=== PATIENT | male | born 1975 | race Caucasian/White ===

== ENCOUNTER 2017-07-22 21:44 | Emergency (ER) | payer SELFPAY ==
[2017-07-22 21:50] VITALS: BP 126/74; PULSE 71; RESP 16; TEMP 98.2
--- NOTE | 2017-07-22 22:22 | ED ---
General Adult HPI - General Chief complaint: Drug Screen Stated complaint: Blood Draw Time Seen by Provider: 07/22/17 22:09 Source: patient, RN notes reviewed Mode of arrival: ambulatory Limitations: no limitations - History of Present Illness Initial comments: This is a 42-year-old male who presents to the emergency department for post accident drug screening. 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 The door of one of his work trucks came off the hinges and broke off. Patient states that because it was work property, he is required to have a drug screen. Denies any injuries or trauma to himself. Has no other complaints, requests or concerns. - Related Data Home Medications Medication Instructions Recorded Confirmed Diphenhydra/Phenyleph/Acetamin 5 ml PO BID PRN 07/22/17 07/22/17 [Theraflu Expressmax Cold Nt Lq] Allergies Allergy/AdvReac Type Severity Reaction Status Date / Time No Known Allergies Allergy Verified 07/22/17 21:58 Review of Systems ROS Statement: Those systems with pertinent positive or pertinent negative responses have been documented in the HPI. ROS Other: All systems not noted in ROS Statement are negative. Past Medical History Past Medical History: No Reported History History of Any Multi-Drug Resistant Organisms: None Reported Past Surgical History: No Surgical Hx Reported Past Psychological History: No Psychological Hx Reported Smoking Status: Heavy tobacco smoker Past Alcohol Use History: None Reported Past Drug Use History: None Reported General Exam - General Exam Comments Initial Comments: General: Awake and alert, well-developed; in no apparent distress. HEENT: Head atraumatic, normocephalic. Pupils are equal, round and reactive to light. Extraocular movements intact. Neck: Supple. Normal ROM. Neurological: Alert and oriented x3. CN II-XII grossly intact. Speech is fluent and answers are appropriate. No focal neuro deficits. Psychiatric: Normal mood and affect. No overt signs of depression or anxiety noted. Full physical examination not warranted as patient denies any injuries or trauma. He has no complaints. Limitations: no limitations Course Vital Signs 07/22/17 21:48 Temperature 98.2 F Pulse Rate 71 Respiratory 16 Rate Blood Pressure 126/74 O2 Sat by Pulse 98 Oximetry Medical Decision Making - Medical Decision Making This is a 42-year-old male who presents for post accident drug screening. Patient denies any injury or trauma to himself. There was damage to company property so drug testing was required. Patient will be discharged home. Disposition Clinical Impression: Encounter for drug screening Disposition: HOME SELF-CARE Condition: Good Additional Instructions: Please follow up with primary care provider within 1-2 days. Return to emergency department if symptoms should worsen or any concerns arise. Referrals: None,Stated [Primary Care Provider] - 1-2 days Time of Disposition: 22:22
== END 2017-07-22 22:50 | disposition home or self-care (01) ==
LOC: EC 21:44
DX: Z02.83 Encounter for blood-alcohol and blood-drug test (principal); F17.200 Nicotine dependence, unspecified, uncomplicated
CPT/HCPCS: 99281

== ENCOUNTER 2017-10-22 02:31 | Emergency (ER) | payer OTHER ==
[2017-10-22 02:38] VITALS: BP 121/76; PULSE 67; RESP 16; TEMP 97.1
== END 2017-10-22 03:31 ==
LOC: EC 02:31
DX: Z02.89 Encounter for other administrative examinations (principal)

== ENCOUNTER 2024-09-26 13:06 | Emergency (ER) | payer BC ==
[2024-09-26 13:14] VITALS: TEMP 97.9
[2024-09-26] MEDS: LIDOCAINE 1% INJ 10MG/ML (20 ML MDV) SQ ONE (13:33)
[2024-09-26] MEDS: DIPH,PERTUS(ACELL)TETVAC-LF 0.5 ML VIAL IM ONE (13:34)
--- NOTE | 2024-09-26 13:44 | XR ---
EXAMINATION TYPE: XR finger LT DATE OF EXAM: 09/26/2024 1:37 PM INDICATION: Patient age:Male; 49 years old; Reason for study: crush injury index finger; PHH. pain COMPARISON: None TECHNIQUE: Frontal, lateral and oblique views of the second digit of the left hand were obtained. FINDINGS: Normal alignment of the visualized joints. No acute osseous pathology is identified. Mild soft tissue swelling of the proximal second digit. There is a linear radiopaque foreign body measurin g approximately 3 to 4 mm within the volar soft tissues adjacent to the proximal phalanx of the secon d digit. IMPRESSION: 1. No acute osseous pathology. 2. Linear radiopaque foreign body within the soft tissues of the second digit with surrounding soft tissue edema. [facility], , 09/26/2024 1:42 PM
--- NOTE | 2024-09-26 14:17 | ED ---
Wound/Laceration HPI - General Chief Complaint: Wound/Laceration Stated Complaint: L hand injury Time Seen by Provider: 09/26/24 13:16 Source: patient Mode of arrival: ambulatory Limitations: no limitations - History of Present Illness Initial Comments: 49-year-old male presenting with chief complaint of laceration to the left index finger. Patient was moving a heavy piece of concrete when it crushed his finger. Laceration is across the distal end of the finger. Bleeding is well- controlled at this time. Tetanus is not up-to-date. He has full range of motion and sensation. - Related Data Home Medications Medication Instructions Recorded Confirmed Diphenhyd/Phenyleph/Acetaminop 5 ml PO BID PRN 07/22/17 07/22/17 [Theraflu Expressmax Cold Nt Lq] Previous Rx's Medication Instructions Recorded Cephalexin [Keflex] 500 mg PO Q12HR 5 Days #10 cap 09/26/24 Allergies Allergy/AdvReac Type Severity Reaction Status Date / Time No Known Allergies Allergy Verified 09/26/24 13:14 Review of Systems ROS Statement: Those systems with pertinent positive or pertinent negative responses have been documented in the HPI. ROS Other: All systems not noted in ROS Statement are negative. Past Medical History Past Medical History: No Reported History History of Any Multi-Drug Resistant Organisms: None Reported Past Surgical History: No Surgical Hx Reported Past Psychological History: No Psychological Hx Reported Past Alcohol Use History: None Reported Past Drug Use History: None Reported General Exam Limitations: no limitations General appearance: alert, in no apparent distress Head exam: Present: atraumatic, normocephalic, normal inspection Eye exam: Present: normal appearance. Absent: EOMI Neck exam: Present: normal inspection. Absent: meningismus Respiratory exam: Absent: respiratory distress Cardiovascular Exam: Present: regular rate Neurological exam: Present: alert, oriented X3 Psychiatric exam: Present: normal affect, normal mood Expanded Type of lesion: Present: laceration Course Vital Signs 09/26/24 09/26/24 13:10 14:28 Temperature 97.9 F Pulse Rate 82 81 Respiratory 20 18 Rate Blood Pressure 139/86 119/81 O2 Sat by Pulse 98 98 Oximetry Procedures - Laceration Laceration #1 Consent Obtained: verbal consent Indication: laceration Site: hand (Left index finger) Description: linear Depth: simple, single layer Anesthetic Used: lidocaine 1%, without epi Anesthesia Technique: local infiltration Pre-repair: wound explored, irrigated extensively Type of Sutures: nylon Size of Sutures: 4-0 Number of Sutures: 3 Patient Tolerated Procedure: well Medical Decision Making - Medical Decision Making Was pt. sent in by a medical professional or institution (NAYA Fregoso, [employer] GAR[employer] ATTENDANT, urgent care, hospital, or fci...) When possible be specific @ -No Did you speak to anyone other than the patient for history (EMS, parent, family, police, friend...)? What history was obtained from this source @ -No Did you review nursing and triage notes (agree or disagree)? Why? @ -I reviewed and agree with nursing and triage notes Were old charts reviewed (outside hosp., previous admission, EMS record, old EKG, old radiological studies, urgent care reports/EKG's, fci records)? Report findings @ -No old charts were reviewed Differential Diagnosis (chest pain, altered mental status, abdominal pain women, abdominal pain men, vaginal bleeding, weakness, fever, dyspnea, syncope, headache, dizziness, GI bleed, back pain, seizure, CVA, palpatations, mental health, musculoskeletal)? @ -Differential includes uncomplicated laceration, fracture, vessel injury, nerve injury, tendon rupture, not an all-inclusive list EKG interpreted by me (3pts min.). @ -As above X-rays interpreted by me (1pt min.). @ -X-ray shows no acute osseous pathology. Linear radiopaque foreign body within the soft tissues of the second digit with surrounding soft tissue edema CT interpreted by me (1pt min.). @ -None done U/S interpreted by me (1pt. min.). @ -None done What testing was considered but not performed or refused? (CT, X-rays, U/S, l abs)? Why? @ -None What meds were considered but not given or refused? Why? @ -None Did you discuss the management of the patient with other professionals (professionals i.e. NAYA Fregoso, [employer] GARAGE ATTENDANT, lab, RT, psych nurse, delinquency prevention social worker, asphalt tamper, teacher, disabilities services officer, caseworker intake)? Give summary @ -No Was smoking cessation discussed for >3mins.? @ -No Was critical care preformed (if so, how long)? @ -No Were there social determinants of health that impacted care today? How? (Homelessness, low income, unemployed, alcoholism, drug addiction, transportation, low edu. Level, literacy, decrease access to med. care, care home, rehab)? @ -No Was there de-escalation of care discussed even if they declined (Discuss DNR or withdrawal of care, Hospice)? DNR status @ -No What co-morbidities impacted this encounter? (DM, HTN, Smoking, COPD, CAD, Cancer, CVA, ARF, Chemo, Hep., AIDS, mental health diagnosis, sleep apnea, morbid obesity)? @ -None Was patient admitted / discharged? Hospital course, mention meds given and route, prescriptions, significant lab abnormalities, going to OR and other pertinent info. @ -49-year-old male presenting with chief complaint of laceration of the left index finger. He injured it while trying to move a heavy piece of concrete. His tetanus is updated today. X-rays negative for fracture. X-ray does comment on a linear radiopaque foreign body adjacent to the proximal phalanx, this is not near the laceration and likely unrelated. Laceration was anesthetized, irrigated, and repaired, see procedure note for details. Patient educated on wound care and signs of infection. Follow-up with PCP. Report back to ER with any new or worsening symptoms. Discussed return parameters and answered all questions. Patient conveyed verbal understanding and agreed to the plan. I discussed this case in detail with my attending Dr. Santizo Undiagnosed new problem with uncertain prognosis? @ -No Drug Therapy requiring intensive monitoring for toxicity (Heparin, Nitro, Insu john, Cardizem)? @ -No Were any procedures done? @ -Laceration repair Diagnosis/symptom? @ -Laceration Acute, or Chronic, or Acute on Chronic? @ -Acute Uncomplicated (without systemic symptoms) or Complicated (systemic symptoms)? @ -uncomplicated Side effects of treatment? @ -No Exacerbation, Progression, or Severe Exacerbation? @ -No Poses a threat to life or bodily function? How? (Chest pain, [place], [place], pneumonia, PE, COPD, DKA, ARF, appy, cholecystitis, CVA, Diverticulitis, Homicidal, Suicidal, threat to staff... and all critical care pts) @ -Unlikely Disposition Clinical Impression: Laceration Disposition: HOME SELF-CARE Condition: Good Instructions (If sedation given, give patient instructions): Care For Your Stitches (ED), Finger Laceration (ED) Additional Instructions: Follow-up with PCP. Report back to ER with any new or worsening symptoms. Keep the wound clean dry and covered. Wash regularly with soap and water. Avoid fully submerging the wound in water for prolonged periods of time. Monitor for signs of infection, including but not limited to redness, swelling, warmth, tenderness, discharge, fever. Sutures may be removed in 10 to 14 days Prescriptions: Cephalexin [Keflex] 500 mg PO Q12HR 5 Days #10 cap Is patient prescribed a controlled substance at d/c from ED?: No Referrals: None,Stated [Primary Care Provider] - 1-2 days Forms: Area PCPs Time of Disposition: 14:17
[2024-09-26 14:35] VITALS: BP 119/81; PULSE 81; RESP 18
== END 2024-09-26 14:31 | disposition home or self-care (01) ==
LOC: EC 13:06
DX: S61.211A Laceration without foreign body of left index finger without damage to nail, initial encounter (principal); Z23 Encounter for immunization; W23.0XXA Caught, crushed, jammed, or pinched between moving objects, initial encounter
CPT/HCPCS: 73140; 90715; 99283; 12001; 90471; J2003